=== PATIENT | female | born 1990 | race Caucasian/White ===

== ENCOUNTER 2018-06-26 10:08 | Emergency (ER) | payer SELFPAY ==
[2018-06-26] MEDS ORDERED: SODIUM CHLORIDE 1,000 ML IV STA (10:29)
[2018-06-26 10:34] LABS: URINE APPEARANCE Clear; URINE BILIRUBIN Negative (NEGATIVE); URINE COLOR Yellow; URINE GLUCOSE (UA) Negative (NEGATIVE); URINE KETONE Negative (NEGATIVE); URINE LEUK ESTERASE Negative (NEGATIVE); URINE NITRITE Negative (NEGATIVE); URINE PROTEIN Negative (NEGATIVE); URINE UROBILINOGEN 0.2 (0.2-1.0)
--- NOTE | 2018-06-26 10:34 | PDOC ---
History of Present Illness - General Chief Complaint: Vaginal Bleeding Stated Complaint: VAGINAL SPOTTING Time Seen by Provider: 06/26/18 10:18 - History of Present Illness Initial Comments: 06/26/18 10:30 28 F with no PMH presents to ED with nausea, vomiting, and fever. Pt states that for 2 days, she has felt very weak and fatigued. She notes that she spiked a fever of 101 yesterday. Pt also reports one episode of nausea and NBNB vomiting. Denies abdominal pain. Denies diarrhea. Pt also reports that she has had vaginal spotting for the past 2 weeks or so. LMP was 1 month ago, but she recently started taking OCPs. Since starting, she has had persistent vaginal spotting. Denies any heavy bleeding or clot passage. Denies CP/SOB. Denies lightheadedness. Past History - Past Medical History Allergies/Adverse Reactions: Allergies Allergy/AdvReac Type Severity Reaction Status Date / Time shellfish derived Allergy Mild Nose Unverified 01/13/13 15:14 itching Home Medications: Ambulatory Orders Bupropion HCl [Wellbutrin Xl] 150 mg PO HS 06/26/18 Review of Systems - Review of Systems Comments:: 06/26/18 10:32 GENERAL/CONSTITUTIONAL: + fever no chills. No weakness. HEAD, EYES, EARS, NOSE AND THROAT: No change in vision. No ear pain or discharge. No sore throat. CARDIOVASCULAR: No chest pain, no shortness of breath, no loss of consciousness RESPIRATORY: No cough, wheezing, or hemoptysis. GASTROINTESTINAL: + nausea, vomiting, no diarrhea or constipation. GENITOURINARY: + vaginal spotting, No dysuria, frequency, or change in urination. MUSCULOSKELETAL: No joint or muscle swelling or pain. No neck or back pain. SKIN: No rash NEUROLOGIC: No vertigo, no change in strength/sensation. ENDOCRINE: No increased thirst. No abnormal weight change. HEMATOLOGIC/LYMPHATIC: No anemia, easy bleeding, or history of blood clots. ALLERGIC/IMMUNOLOGIC: No hives or skin allergy. *Physical Exam - Physical Exam Comments: 06/26/18 10:33 GENERAL: Awake, alert, and fully oriented, in no acute distress. HEAD: No signs of trauma EYES: PERRLA, EOMI, sclera anicteric, conjunctiva clear ENT: Auricles normal inspection, hearing grossly normal, nares patent, oropharynx clear without exudates. Moist mucosa NECK: Nontender, no stepoffs, Normal ROM, supple, no lymphadenopathy, JVD, or masses LUNGS: Breath sounds equal, clear to auscultation bilaterally. No wheezes, and no crackles HEART: Regular rate and rhythm, normal S1 and S2, no murmurs, rubs or gallops ABDOMEN: Soft, nontender, normoactive bowel sounds. No guarding, no rebound. No masses EXTREMITIES: Normal range of motion, no edema. No clubbing or cyanosis. No cords, erythema, or tenderness NEUROLOGICAL: Cranial nerves II through XII intact. 5/5 strength and sensation in all extremities, Normal speech, normal gait, normal cerebellar function SKIN: Warm, Dry, normal turgor, no rashes or lesions noted. ED Treatment Course - LABORATORY CBC & Chemistry Diagram: 06/26/18 10:50 06/26/18 10:50 Medical Decision Making - Medical Decision Making 06/26/18 10:33 28 F with N+V+fever. Likely viral infection. Pt with benign abdomen. Negative angeles's. No lower abdominal tenderness to suggest appy or ovarian pathology. Pt has had vaginal spotting, likely 2/2 OCP use. No clinical signs of severe anemia. - Labs, UA, UPT - IVF - Flu swab 06/26/18 11:53 Labs wnl UPT negative Pt reassessed after fluids, now feels significantly improved. Pt is well appearing, with normal vitals. Clinically stable for DC at this time. I discussed the physical exam findings, ancillary test results and final diagnoses with the patient. I answered all of the patient's questions. The patient was satisfied with the care received and felt comfortable with the discharge plan and treatment plan. The patient agrees to follow up with the primary care physician within 24-72 hours. *DC/Admit/Observation/Transfer Diagnosis at time of Disposition: Vaginal spotting, Viral syndrome - Discharge Dispostion Disposition: HOME Condition at time of disposition: Good - Referrals Referrals: Shantel Sharma MD [Primary Care Provider] - - Patient Instructions Printed Discharge Instructions: DI for Vaginal Bleeding, DI for Viral Syndrome Additional Instructions: Follow up with your mopper within 1 week for further evaluation of your vaginal bleeding. You may have a viral infection causing your fevers and nausea. Drink plenty of fluids and take tylenol or motrin as needed for fevers. If you experience any worsening bleeding, abdominal pain, lightheadedness, or any other concerning symptoms, return to the ER immediately. - Post Discharge Activity - Attestations Physician Attestion: 06/26/18 11:57 I, Dr. Christoph Baker MD, attest that this document has been prepared under my direction and personally reviewed by me in its entirety. I further attest, that it accurately reflects all work, treatment, procedures and medical decision -making performed by me.
[2018-06-26 10:37] VITALS: BP 124/77; PULSE 80; TEMP 98.1; BMI 64.5
[2018-06-26 10:41] LABS: HCG,QUALITATIVE URINE Negative
[2018-06-26 11:09] LABS: EPI CELLS FEW /HPF; URINE WBC 0-2 (0-5)
[2018-06-26 11:11] LABS: BASO % 0.6 % (0-2.0); EOS % 0.1 % (0-4.5); HEMATOCRIT 36.7 % (32.4-45.2); LYMPH % 11.9 % (8-40); MCH 27.4 pg (25.7-33.7); MCHC 32.8 g/dl (32.0-36.0); MEAN CELL VOLUME 83.7 fl (80-96); MEAN PLT VOLUME 8.8 fl (7.5-11.1); MONO % 3.6 % (3.8-10.2); NEUT % 83.8 % (42.8-82.8); PLATELET COUNT 278 K/MM3 (134-434); RBC 4.39 M/mm3 (3.60-5.2); RDW 14.6 % (11.6-15.6); WHITE BLOOD COUNT 6.8 K/mm3 (4.0-10.8)
[2018-06-26 11:30] LABS: ALBUMIN 4.4 g/dl (3.5-5.0); ALK PHOS 33 U/L (32-92); ANION GAP 7 MMOL/L (8-16); BILIRUBIN,TOTAL 0.7 mg/dl (0.2-1.0); BLOOD UREA NITROGEN 7 mg/dl (7-18); CALCIUM 9.6 mg/dl (8.4-10.2); CHLORIDE 106 mmol/L (98-107); CO2 23 mmol/L (22-28); CREATININE 0.8 mg/dl (0.6-1.3); GLUCOSE,RANDOM 109 mg/dl (74-106); SGOT/AST 24 U/L (10-42); SGPT/ALT 18 U/L (10-40); SODIUM 136 mmol/L (136-145); TOT PROT 7.8 g/dl (6.4-8.3)
== END 2018-06-26 12:17 | disposition home or self-care (01) ==
LOC: FER 10:08
PROC: 3E0337Z Introduction of Electrolytic and Water Balance Substance into Peripheral Vein, Percutaneous Approach (ICD-10-PCS; principal; 2018-06-26)
DX: R05 Cough (principal); B34.9 Viral infection, unspecified; N93.9 Abnormal uterine and vaginal bleeding, unspecified
CPT/HCPCS: 36415; 80053; 81003; 81015; 84703; 85025; 87804; 99283-25; J7030

== ENCOUNTER 2020-07-15 13:42 | Emergency (ER) | payer OTHER | END 2020-07-15 14:28 | disposition home or self-care (01) | LOC: JVIRT 13:42 | DX: Z11.59 Encounter for screening for other viral diseases (principal) | CPT/HCPCS: C9803; Q3014-GT; U0003 ==